=== PATIENT | female | born 1940 | race Caucasian/White ===

== ENCOUNTER 2018-07-20 07:06 | Day surgery (SDC) | payer MEDICARE, BC ==
[~2018-07-20 07:06] MED LIST: ADLT ASA LOW81 MG PO; ASPIRIN CHEWABL81 MG PO; ASPIRIN81 MG PO; AUGMENTIN500TAB PO; CALCIUM CITRATE1 TAB PO; CETIRIZ/PSE1 TAB PO; COD LIVER PO; CORAL CALCIU1000 MG PO; CORAL CALCIUM PO; CYCLOBENZAPR10 MG PO; FLUARIX QUADRIV1 IN1 IM; FLUARIX QUADRIV1 INJ SC; FLULAVAL IM; LATANOPROST0.005 % IO; MELOXICAM7.5 MG PO; MULTI VIT PO; NADOLOL20 MG PO; NAPROSYN500 MG PO; NIFEDIPINE ER30 M1 PO; NORCO1 TA1 PO; PRILOSEC20 MG/CAP PO; ROBITUSSIN AC10 ML; ROBITUSSIN AC10 ML PO
[2018-07-20 10:39] VITALS: BP 116/63
== END 2018-07-20 10:50 | disposition home or self-care (01) ==
LOC: ENDO 07:06
PROVIDERS: ATTEND Internal Medicine Gastroenterology
PROC: 0DB48ZX Excision of Esophagogastric Junction, Via Natural or Artificial Opening Endoscopic, Diagnostic (ICD-10-PCS; principal; 2018-07-20)
PROC: 0DJD8ZZ Inspection of Lower Intestinal Tract, Via Natural or Artificial Opening Endoscopic (ICD-10-PCS; 2018-07-20)
DX: I25.10 Atherosclerotic heart disease of native coronary artery without angina pectoris (principal); K29.51 Unspecified chronic gastritis with bleeding; Q40.2 Other specified congenital malformations of stomach; Q40.8 Other specified congenital malformations of upper alimentary tract; K44.9 Diaphragmatic hernia without obstruction or gangrene; D13.0 Benign neoplasm of esophagus; K64.4 Residual hemorrhoidal skin tags; K57.31 Diverticulosis of large intestine without perforation or abscess with bleeding; Q43.8 Other specified congenital malformations of intestine; D12.9 Benign neoplasm of anus and anal canal; C91.10 Chronic lymphocytic leukemia of B-cell type not having achieved remission; Z92.21 Personal history of antineoplastic chemotherapy

== ENCOUNTER 2019-02-17 08:14 | Emergency (ER) | payer MEDICARE, BC ==
[~2019-02-17] VITALS: Ht 172.7 cm; Wt 65.0 kg
[2019-02-17] MEDS ORDERED: VOLTAREN1%GEL TOP (09:54)
[2019-02-17] MEDS ORDERED: MOTRIN400 MG PO (09:54)
[2019-02-17 09:55] VITALS: BP 135/77
== END 2019-02-17 10:26 | disposition home or self-care (01) ==
LOC: ED 08:14
DX: S83.91XA Sprain of unspecified site of right knee, initial encounter (principal); M25.561 Pain in right knee; S80.02XA Contusion of left knee, initial encounter; S80.01XA Contusion of right knee, initial encounter; S80.211A Abrasion, right knee, initial encounter; S80.212A Abrasion, left knee, initial encounter; M17.0 Bilateral primary osteoarthritis of knee; W01.0XXA Fall on same level from slipping, tripping and stumbling without subsequent striking against object, initial encounter; Y93.01 Activity, walking, marching and hiking; Y92.89 Other specified places as the place of occurrence of the external cause
CPT/HCPCS: L1830